=== PATIENT | female | born 2000 | race Caucasian/White ===

== ENCOUNTER 2025-08-18 14:59 | Emergency (ER) | payer BC, SELFPAY ==
[2025-08-18 15:00] VITALS: BP 125/92; PULSE 77; RESP 15; TEMP 36.1; O2SAT 100; BMI 24.4
--- NOTE | 2025-08-18 15:20 | EDS_ITS ---
HPI History of Present Illness Chief Complaint: Headache Informant: patient Onset/Context/Timing Onset: Days (3) Context: Gradual Timing: Continuous Location: Left side of head Worsened by: Nothing Relieved by: Nothing Associated Symptoms/Injury Associated Symptoms: Negative for Fever, Nausea, Vomiting, Sore Throat, Sinus Pressure, Numbness, Tingling, Preceding Aura, Visual Changes, Blurred Vision, Photophobia or Visual Loss Narrative Narrative: Patient presents with headache and confusion that has been getting worse over the past 3 days. Patient states her headache is mainly over the left side of her head. Patient describes it as dull, cramping, and sharp at times. Patient states she did have some tunnel vision earlier today. Patient states nothing makes her headache worse and nothing makes it better. Patient states she has pain in her ears, worse on the left. Patient denies any blurry vision or double vision. Patient denies any fevers or chills. PFSH PFSH Medical History no medical history no medical history Allergy/AdvReac Type Severity Reaction Status Date / Time No Known Allergies Allergy Verified 08/18/25 14:59 Family History no significant family his Surgical History no surgical history no surgical history Social History Smoking Status: Never smoker ROS ROS ED Constitutional Constitutional ED: Denies chills or fever(s) Eyes Eyes: Denies blurry vision or change in vision ENT ENT ED: Reports ear pain bilateral (Left worse than right); Denies rhinorrhea or sore throat Cardiovascular Cardiovascular: Denies chest pain or palpitations Respiratory/Chest Respiratory/Chest: Denies cough or dyspnea Gastrointestinal Gastrointestinal: Denies nausea or vomiting Genitourinary Genitourinary ED: Denies dysuria or hematuria Musculoskeletal Musculoskeletal: Denies back pain or neck pain Integumentary Denies abscess or rash Neurologic Neurologic: Reports headache(s); Denies weakness Allergic/Immunologic Allergic/Immunologic ED: Denies mouth swelling or urticaria EXAM Physical Exam Const Vital Signs: 08/18/25 15:00 08/18/25 16:00 Temperature 97 F L Temperature Source Temporal Pulse Rate 77 90 Respiratory Rate 15 15 Blood Pressure 125/92 H 113/75 Blood Pressure Mean 103 87 Pulse Ox 100 95 Oxygen Delivery Method Room Air Room Air Positive well nourished and well developed General Appearance ED: well developed and NAD HEENT Reports normocephalic atraumatic; Negative for temporal artery tenderness Neck supple and no JVD Resp normal respiratory effort and clear to auscultation bilaterally Cardio regular rate and regular rhythm GI non-tender and non-distended Palpation: soft Extremity full ROM Neuro oriented x3, CN's II-XII intact bilaterally and no sensory deficits noted Oxford Coma Scale: document GCS findings Spontaneous Obeys Commands Oriented 15 Sensorium / Orientation: awake and alert Speech: speech normal Motor Exam: strength 5/5 throughout Psych mental status grossly normal MDM MDM MDM Narrative Medical decision making narrative: Differential diagnosis includes migraine headache, intracranial bleeding, dehydration, electrolyte abnormality, urinary tract infection, and anxiety. CT scan of the brain will be obtained to assess for intracranial bleeding. Urinalysis will be obtained to assess for urinary tract infection and hematuria. CBC will be obtained to assess for leukocytosis and anemia. Basic metabolic profile will be obtained to assess for electrolyte abnormality and renal function. Serum hCG will be obtained to assess for . Lab Data Attestation: I reviewed the patient's lab results. Lab results narrative: CBC was reviewed. White blood cell count was minimally low at 4.3. The remainder is within normal limits. Basic metabolic profile was reviewed and was within normal limits. Serum hCG was reviewed and was negative. Urinalysis was reviewed. There is no evidence of urinary tract infection or hematuria. Labs: Laboratory Results - last 24 hr 08/18/25 08/18/25 15:35 15:55 WBC 4.3 L RBC 4.89 Hgb 14.5 Hct 42.3 MCV 86.5 MCH 29.7 MCHC 34.3 RDW Std Deviation 38.5 RDW Coeff of Lilly 12.1 Plt Count 212 MPV 8.7 Immature Gran % (Auto) 0.500 Neut % (Auto) 44.7 L Lymph % (Auto) 42.3 H Crisp % (Auto) 7.2 Eos % (Auto) 3.7 Baso % (Auto) 1.6 H Absolute Neuts (auto) 1.9 L Absolute Lymphs (auto) 1.81 Nucleated RBC % 0 Sodium 138 Potassium 3.8 Chloride 105 Carbon Dioxide 25.2 Anion Gap 8 BUN 7 Creatinine 0.75 Estim Creat Clear Calc 112.48 Est GFR (MDRD) Non-Af 113 BUN/Creatinine Ratio 9.3 L Glucose 111 H Calcium 9.5 Serum , Qual NEGATIVE Urine Color Yellow Urine Clarity Clear Urine pH 8.0 Ur Specific [place] 1.015 Urine Protein Negative Urine Glucose (UA) Normal Urine Ketones Negative Urine Occult Blood Negative Urine Nitrite Negative Urine Bilirubin Negative Urine Urobilinogen Normal Ur Leukocyte Esterase 25 H Urine RBC 0 SEEN Urine WBC 0-5 SEEN Ur Squamous Epith Cells 10-25 SEEN Urine Bacteria 1+ Urine Mucus 0 SEEN Radiography Diagnostic Testing: Clinical Impression(s) from Imaging Studies Brain CT 08/18/25 15:21 IMPRESSION: Normal intracranial contents. Fluid in the left maxillary sinus may reflect acute sinusitis. Reading Location: [facility] CT scan of the brain was obtained. There is no acute intracranial abnormality. This was interpreted by the radiologist and was also independently reviewed by myself. Treatment and Re-Evaluation Narrative: Patient was given IV fluids, Reglan, and Benadryl. Patient feels better on reevaluation. Patient was advised of her findings. Patient was advised that this could be a migraine headache. Patient was instructed to rest in a dark quiet room. Patient was instructed to follow-up with her primary care physician in 5 to 7 days. Patient and family understood and were agreeable with the plan. All questions were answered. Discharge Plan Triage Chief Complaint: Headache ED Provider: Jose L Anderson Dx/Rx/DC Orders Clinical Impression: Headache, migraine, Elevated blood pressure reading Instructions: ED, Migraine (Classical) Primary Care Provider: Care Physician,No Primary Referrals: Jackie Phelps MD [Med Staff - Active Staff, Internal Medicine] - 5-7 Days Care Physician,No Primary [Primary Care Provider, Medical] Print Language: [place] Disposition Disposition: Home, Self Care
--- NOTE | 2025-08-18 15:21 | CT_ITS ---
PROCEDURE: CT BRAIN/HEAD WITHOUT CONTRAST 08/18/2025 REASON FOR EXAM: PAIN TECHNIQUE: Procedure Code: CTBR Modality: CT Procedure: BRAIN/HEAD WITHOUT CONTRAST Coronal and Sagittal reconstruction series were provided. One or more dose reduction techniques were used (e.g., Automated exposure control, adjustment of the mA and/or kV according to patient size, use of iterative reconstruction technique. RADIATION DOSE SUMMARY: CTDlvol: 47.06 mGy DLP: 837.39 mGycm COMPARISON: None. FINDINGS: No acute intracranial hemorrhage, extra-axial collection, mass effect or evidence of acute infarct. Ventricles and subarachnoid spaces are normal in size. Orbital contents are unremarkable. Intact skull base and calvarium. No mastoid effusions. Frothy secretions in the left sphenoid sinus and dependent fluid in the left maxillary sinus, which may reflect acute sinusitis. CT/Brain/Head without Contrast IMPRESSION: Normal intracranial contents. Fluid in the left maxillary sinus may reflect acute sinusitis. Reading Location: [id number]
[2025-08-18 15:46] LABS: Hematocrit 42.3 % (37-47); Hemoglobin 14.5 g/dL (12.0-15.0); Immature Granulocytes Count 0.020 X10^3/uL (0.0-0.0); Mean Corp Hgb Conc 34.3 g/dL (32-36); Mean Corpuscular Volume 86.5 fL (81-99); Mean Platelet Vol. 8.7 fl (6.2-12.0); NRBC Flagged by Analyzer 0 % (0-5); Platelet Count 212 K/mm3 (150-450); RBC Distribution Width CV 12.1 % (11.6-14.6); RBC Distribution Width SD 38.5 fl (35.1-43.9); Red Blood Count 4.89 M/mm3 (4.2-5.4); White Blood Count 4.3 K/mm3 (4.4-11.0)
[2025-08-18] MEDS: DiphenhydrAMINE 50 MG/ML Syringe 25 MG IV (15:53)
[2025-08-18] MEDS: 0.9% Normal Saline (1000mL) 1,000 ML 999 ML IV (15:53)
[2025-08-18 15:54] LABS: Internal QC Validated? YES +Cl - CLEAR BKGD; Pregnancy, Serum, hCG Quali. NEGATIVE Negative
[2025-08-18 15:55] LABS: Record Kit Lot#, Serum Preg. 0000980607
[2025-08-18 16:00] VITALS: BP 113/75; PULSE 90; RESP 15; O2SAT 95
[2025-08-18 16:03] LABS: Mucous, Urine 0 SEEN /hpf (<or=2+); Red Blood Cells-Urine 0 SEEN /hpf (0-5)
[2025-08-18 16:07] LABS: Color, Urine Yellow (Yellow); Glucose, Dipstick Normal (Normal); Ketone-Dipstick Negative (Negative); Leukocyte Esterase-Dipstick 25 /ul (Negative); Nitrite-Dipstick Negative (Negative); Occult Blood-Urine Negative /ul (Negative); Protein-Dipstick Negative (Negative); Specific Gravity, Urine 1.015 (1.002-1.030); Urine Bilirubin Dipstick Negative (Negative)
[2025-08-18 16:19] LABS: Squamous Epithelial Cells - UA 10-25 SEEN /hpf (5-10)
[2025-08-18 16:24] LABS: Anion Gap 8 (5-15); BUN 7 mg/dL (4-19); BUN/Creat Ratio 9.3 RATIO (10-20); Calcium,Total 9.5 mg/dL (7.6-11.0); Carbon Dioxide 25.2 mmol/L (21.0-32.0); Chloride 105 mmol/L (98-108); Estimated Creatinine Clearance 112.48 ml/min (50-250); Glucose 111 mg/dL (70-99); Potassium 3.8 mmol/L (3.3-5.1)
[2025-08-18 16:58] VITALS: BP 110/81; O2SAT 99
[2025-08-18 17:00] VITALS: BP 108/71; PULSE 92; RESP 16; TEMP 36.1; O2SAT 99
== END 2025-08-18 17:10 | disposition home or self-care (01) ==
PROVIDERS: Emergency Provider Emergency Medicine; Visit Provider Emergency Medicine
DX: G43.909 Migraine, unspecified, not intractable, without status migrainosus (principal); R03.0 Elevated blood-pressure reading, without diagnosis of hypertension
CPT/HCPCS: 70450; 80048; 81001; 84703; 85025; 96361; 96374; 96375; 99283; A4216